=== PATIENT | male | born 1955 | race Caucasian/White ===

== ENCOUNTER 2017-09-10 15:00 | Inpatient (IN) | payer OTHER ==
[2017-09-16] MEDS ORDERED: FAMOTIDINE 20MG TABLET PO ONE (06:00)
[2017-09-16] MEDS ORDERED: ACETAMINOPHEN 1,000 MG/100 ML BTL IV ONE (06:00)
[2017-09-16] MEDS ORDERED: CELECOXIB 100 MG CAPSULE PO ONE (06:00)
[2017-09-16] MEDS ORDERED: MECLIZINE 25 MG TABLET PO ONE (06:00)
[2017-09-16] MEDS ORDERED: METOCLOPRAMIDE 10 MG TABLET PO ONE (06:00)
[2017-09-16] MEDS ORDERED: VANCOMYCIN HCL 1,000 MG in 0.9 % SODIUM CHLORIDE 250ML 250 ML IVPB ONE (06:00)
[2017-09-16 11:54] LABS: ABO GROUP A; ANTIBODY SCREEN NEGATIVE (NEGATIVE); RH TYPE POSITIVE
[2017-09-16] MEDS ORDERED: EPHEDRINE SULFATE 50 MG/ML ML IV ONE (14:00)
[2017-09-16] MEDS ORDERED: FENTANYL PF 100MCG/2ML VIAL IV ONE (14:00)
[2017-09-16] MEDS ORDERED: *PACU ONLY* KETAMINE HCL 10 MG/ML (20ML) VIAL IV ONE (14:00)
[2017-09-16] MEDS ORDERED: HYDROMORPHONE HCL 2 MG/ML VIAL IV ONE (14:00)
[2017-09-16] MEDS ORDERED: PROPOFOL 10 MG/ML VIAL IV ONE (14:00)
[2017-09-16] MEDS ORDERED: MIDAZOLAM HCL 2MG/2ML VIAL IV ONE (14:00)
[2017-09-16] MEDS ORDERED: KETOROLAC 30 MG/ML VIAL IVP ONE (14:00)
[2017-09-16] MEDS ORDERED: NALOXONE 0.4 MG/1 ML VIAL IVP PRN (15:00)
[2017-09-16] MEDS ORDERED: MAGNESIUM HYDROXIDE 30 ML UDC PO PRN (15:00)
[2017-09-16] MEDS ORDERED: CEFAZOLIN 2 Gram 2 GM/50 ML BAG IVPB SCH (15:00)
[2017-09-16] MEDS ORDERED: BISACODYL 10 MG SUPP RC PRN (15:00)
[2017-09-16] MEDS ORDERED: HYDROMORPHONE HCL 1MG/ML **SYRINGE IM PRN (15:00)
[2017-09-16] MEDS ORDERED: AL HYDROX/MAG HYDROX 30ML UD PO PRN (15:00)
[2017-09-16] MEDS ORDERED: KETOROLAC 30 MG/ML VIAL IVP PRN ×2 (15:00)
[2017-09-16] MEDS ORDERED: ACETAMINOPHEN W/ CODEINE 300MG/60MG TABLET PO PRN ×2 (15:00)
[2017-09-16] MEDS ORDERED: HYDROMORPHONE HCL 2 MG/ML VIAL IM PRN (15:00)
[2017-09-16] MEDS ORDERED: ZOLPIDEM TARTRATE 5 MG TABLET PO PRN (15:00)
[2017-09-16] MEDS ORDERED: HYDROCODONE/APAP 10/325 TABLET PO PRN (15:00)
[2017-09-16] MEDS ORDERED: ONDANSETRON HCL IV 4 MG/2 ML VIAL IVP PRN (15:00)
[2017-09-16] MEDS ORDERED: ACETAMINOPHEN 325 MG TAB PO PRN (15:00)
[2017-09-16] MEDS ORDERED: DIPHENHYDRAMINE HCL 25 MG CAPSULE PO PRN (15:00)
[2017-09-16] MEDS ORDERED: BUPIVACAINE 0.75% W/EPI MPF 30ML VIAL IVP ONE (16:23)
[2017-09-16] MEDS ORDERED: TRANEXAMIC ACID 1,000 MG/10 ML ML IV ONE (16:23)
[2017-09-16] MEDS ORDERED: POTASSIUM CHLORIDE/D5-0.9%NACL 20 MEQ/1,000 ML BAG IV SCH (16:30)
[2017-09-16] MEDS ORDERED: PNEUM 23-VAL ADULT IM ONE (16:39)
[2017-09-16] MEDS: VANCOMYCIN HCL 1,000 MG in 0.9 % SODIUM CHLORIDE 250ML 250 ML IVPB SCH (23:25)
[2017-09-16] MEDS: DOCUSATE SODIUM 100 MG CAPSULE PO SCH (23:25)
[2017-09-17] MEDS: HYDROCODONE/APAP 10/325 TABLET PO PRN ×4 (06:14→21:19)
[2017-09-17 06:43] LABS: HEMATOCRIT 28.4 % (42.0-52.0); HEMOGLOBIN 9.1 gm/dl (14.0-18.0)
[2017-09-17 06:55] LABS: BLOOD UREA NITROGEN 14 mg/dL (8-23); CREATININE 0.7 mg/dL (0.7-1.2); EST GLOMERULAR FILTRATION RATE > 60 mL/min; GLUCOSE,RANDOM 147 mg/dL (74-109)
--- NOTE | 2017-09-17 08:07 | Operative Note ---
DATE: 09/16/2017. PREOPERATIVE DIAGNOSIS: End-stage arthrosis of the right hip. POSTOPERATIVE DIAGNOSIS: End-stage arthrosis of the right hip. PROCEDURE: Cementless right total hip arthroplasty using [employer] components with a size 54, no-hole reflection cup; 32-mm diameter, 35-degree offset, highly crosslinked liner; a size 15 cementless Smolan high offset stem with a -3, 32 mm diameter Oxinium head. STAFF SURGEON: Hood Montez M.D. ANESTHESIA: Spinal. PREPARATION: ChloraPrep. INDIVIDUAL CONSIDERATIONS: None. PROCEDURE: The patient was taken to the operating room and and had successful induction of a spinal anesthetic. He was then placed on his side with the right side up, and his right leg and hip were prepped and draped in the usual fashion. The patient had a direct posterior approach to the hip. Sharp dissection was carried down through the skin and subcutaneous tissue. Small veins were coagulated with a Bovie. The tensor gluteal fascia was opened along the entire length of the incision, and deep retractors were placed. Short external rotators were identified, piriformis fossa, and removed. This exposed the posterior capsule. A posterior capsulectomy was performed, and the hip was dislocated posteriorly. He had exposed bone throughout and a shallow socket. A femoral neck cut was made freehand with an oscillating saw about a fingerbreadth above the lesser trochanter. A rim capsulectomy was then performed. A large ligamentum debrided. Starting with a 45 reamer to medialize , I reamed the introitus to a size 53 for a 54 cup. I slightly centrally reamed with a 52 reamer, and then after irrigation impacted a size 54 no-hole reflection cup in 20 degrees of forward flexion and 40 degrees of abduction using the extra-articular alignment guide and bony landmarks. There was solid cementless fixation. After irrigation the center cap screw was placed. I then again irrigated and I impacted the highly cross linked liner which was 35- degree offset with a 32-mm diameter with the offset posteriorly and inferiorly. This gave it excellent, stable acetabular construct. This was packed off. The proximal femur was delivered into the wound. A box-cutting osteotome was used to remove proximal metaphyseal bone. Mid-stem reaming was done to a size 15. I started feeling cortex to between 12 and 13. Broaching was to a 15. Anteversion was dialed into the natural angle which was about 25 degrees. After calcar reaming and because I medialized, I elected to use a high offset stem. I needed a -3 head to get absolute stability, and at that point it was not overly tight. The length appeared appropriate or maybe 1.0 mm too short which I thought would be appropriate. After irrigation, the high offset, size 15 Smolan stem was impacted into place with solid calcar contact. After thorough irrigation, I dried the Reilly taper and then impacted a -3 Oxinium head , 32 mm, and reduced the hip. I had absolute stability, full stability in external rotation and extension. I flexed it up as much as possible and even internally rotated into 90 degrees, and it was still stable. The sciatic nerve was inspected and was found to be completely intact. Hemostasis was obtained with a Bovie. The skin and subcutaneous were infiltrated with about 20 mL of 0.75% Marcaine with epinephrine. The tensor gluteal fascia was then closed with running #2 Quill, the subcutaneous was closed in layers of running 0 Quill. Prior to finishing close the fascia, I did inject the deep fascial area with 30 mL of saline mixed with 1.0 gm of tranexamic acid. He also received 1.0 gm of tranexamic acid IV. The skin was then closed with darrell and a sterile, bulky compressive Aquacel type dressing was applied. The patient tolerated the procedure well. Needle and sponge counts were correct. Estimated blood loss was 500 mL. We will check a hemoglobin in the morning. There were absolutely no complications. GABRIELLE
--- NOTE | 2017-09-17 10:49 | Rehab Evaluation ---
Patient Information - Patient Information Diagnosis: DJD Right Hip Ordered Treatment: PT Evaluate and Treat Status: Initial Evaluation Surgery: Yes (R BULL) Date of Surgery: 09/16/17 History: Detail (Pt. reports history of osteoarthritic changes pertaining to the right hip. Pt. denies related surgeries prior to BULL.) Past Med/Giovanni Hx Detail: Detail (See additional intake forms.) Past Medical/Surgical Hx: PAST MEDICAL/SURGICAL HISTORY Past Surgical History c scope polyps tonsils PMH - Respiratory Hx Respiratory Disorders No PMH - Cardiovascular Exercise Tolerance Good PMH - Neuro Hx Neurological Disorders No PMH - GI Hx Gastrointestinal Disorders Yes PMH - Hx Genitourinary Disorders No PMH - Endocrine Hx Endocrine Disorders No PMH - Musculoskeletal Hx Musculoskeletal Disorders Yes Hx Arthritis Yes PMH - Psych Hx Psychiatric Problems Yes Hx Anxiety Yes: related to surgery and other things PMH - Hematology/Oncology Hx Hematology/Oncology No Disorders Premorbid Status: Detail (Pt. reports slowly progressive worsening of sx.) Social History: Detail (Pt. lives alone in a single story home with 2 steps leading into the home and no hand rail. Pt. reports he has a daughter who lives nearby and is able to provide support. Pt. does report his laundry is located in the basement. Pt. has a standard tub with shower chair, he has a commode in the bathroom. Pt. does not have a trapeeze or other assistive tools for bed mobility. He is a 1 pack per day smoker. Pt. worked for [employer].) Precautions: [place], Fall - Time With Patient Total Time Spent With Patient (Min): 40 Treatment Procedures: Detail (Physical Therapy Evaluation Completed. Pt. was left supine with call light available, B IPC, cryo Right hip.) Subjective Information - Subjective Information Per Patient (Pt. reported 6-7/10 right hip pain at start of tx, which decreased to 1-2/10 at end of tx. Pt. was found seated upright in a chair with visible signs of fatigue. Pt. was oriented to his location and purpose for being at [facility] , however, he required verbal cues to stay awake during verbal instruction of hip precautions.) Objective Data - Pain Pain Present: Yes Pain Intensity: 6 Pain Scale Used: Numeric (1 - 10) - Mental Status Patient Orientation: Oriented x3 - Visual Perception Appears within normal limits for therapeutic activities - ROM Not within normal limits (Right hip not tested for AROM due to pain. Right knee flexion and extension within functional limits actively. Right ankle dorsiflexion and platarflexion within funtional limits actively. LLE within functional limits actively all planes. BUE WFL all planes.) - Strength/Tone Not within normal limits (R hip flexion 3+/5 with increased pain, 4+/5 L hip flexion with increased pain at the right hip. 4/5 right knee flexion and extension. 5/5 L LE for gross break testing. Right hip abduction 3+/5 and patient required mod assist with SLR and abduction of right hip with bed mobility and transfer.) - Coordination Appears within normal limits for therapeutic activities - Bed Mobility Needs Assist (Pt. required verbal and tactile cueing to hook his LLE and extend his hip, as well as push UE into bed for bed mobility to position at head of bed. He required mod assist x1 when lifting his RLE into bed and to position his RLE appropriately once supine.) - Transfers Needs Assist (Pt. required min assist x2 with sit to stand transfer, he was I with stand to sit transfer. Pt. required tactile cueing to facilitate hip extension to maintain standing balance and upright positioning following sit to stand transfer.) - Balance Balance Sitting: Fair (Pt. exhibited good midline positioning with seated balance, but did require tactile cues to avoid breaking hip precautions past 90 degrees of flexion once seated at bed.) Balance Standing: Fair (Pt. unable to stand without walker secondary to deacreased weight bore onto RLE.) - Sensation Intact (Pt. able to feel sensation to light touch, he exhibited excellent proprioceptive and kinesthetic awareness regrading the RLE.) - Gait Detail (Pt. ambulated for 4 steps forward and backward with standard walker and exhibited lack of heel strike, RLE; pt. bore ~25 BW onto RLE and relied heavily on his contralateral LE to perform transfers and advance his involved LE with walker.) - ADL's/IADL's Detail (Pt. was not assessed for ADLs regarding dressing and bathroom use.) - Special Tests No Therapy Assessment - Therapy Assessment Detail (Pt. exhibits poor safety awareness with transfers, decreased strength regarding the RLE, poor standing balance, and he is not independent with bed mobility and transfer.) Patient Education - Patient Education Teaching Topic: Disease Process, Equipment Use, Precautions Response: Return Demonstration, Verbalize Understanding Teaching Method: Discussion, Demonstration Teaching Recipient: Patient Barriers To Learning: None Problem List - Problem List Physical Therapy Problem List: Detail (1) LE weakness 2) Antalgic gait 3) Balance impairment 4) Dependent with bed mobility and transfer.) Goals - Goals Physical Therapy Goals: 1) Pt. will ascend and descend 2 steps I with or without AD and will not break hip precations. 2) Pt. will be independent with bed mobility and transfer. 3) Pt. will exhibit good seated and standing balance for safe ADLs. 4) Pt. will verbalize understanding of hip precautions. 5) Pt. will demonstrate good understanding of his HEP. Prognosis - Prognosis Good Plan - Plan Physical Therapy Plan: Pt. will be seen 1-2x per day for inpatient PT until goals met.
[2017-09-17] MEDS: RIVAROXABAN 10 MG TABLET PO SCH (11:11)
[2017-09-17] MEDS: DOCUSATE SODIUM 100 MG CAPSULE PO SCH ×2 (11:11→21:18)
[2017-09-17] MEDS: FERROUS SULFATE 325 MG TAB PO SCH (11:11)
[2017-09-17] MEDS: VANCOMYCIN HCL 1,000 MG in 0.9 % SODIUM CHLORIDE 250ML 250 ML IVPB SCH (11:13)
--- NOTE | 2017-09-17 14:30 | Rehab Evaluation ---
Patient Information - Patient Information Diagnosis: DJD Right Hip Ordered Treatment: OT Evaluate and Treat Status: Initial Evaluation Surgery: Yes (R BULL) Date of Surgery: 09/16/17 History: Detail (Pt. reports history of osteoarthritic changes pertaining to the right hip. Pt. denies related surgeries prior to BULL.) Past Med/Giovanni Hx Detail: Detail (See additional intake forms.) Past Medical/Surgical Hx: PAST MEDICAL/SURGICAL HISTORY Past Surgical History c scope polyps tonsils PMH - Respiratory Hx Respiratory Disorders No PMH - Cardiovascular Exercise Tolerance Good PMH - Neuro Hx Neurological Disorders No PMH - GI Hx Gastrointestinal Disorders Yes PMH - Hx Genitourinary Disorders No PMH - Endocrine Hx Endocrine Disorders No PMH - Musculoskeletal Hx Musculoskeletal Disorders Yes Hx Arthritis Yes PMH - Psych Hx Psychiatric Problems Yes Hx Anxiety Yes: related to surgery and other things PMH - Hematology/Oncology Hx Hematology/Oncology No Disorders Premorbid Status: Detail (Pt. reports slowly progressive worsening of sx.) Social History: Detail (Pt. lives alone in a single story home with 2 steps leading into the home and no hand rail. Pt. reports he has a daughter who lives nearby and is able to provide support. Pt. does report his laundry is located in the basement. However, patient completed several loads of laundry prior to sx and states he will not need to do laundry for a long time. Pt. has a standard tub/shower combo with transfer bench and fixed shower head. He has a commode in the bathroom. Pt. does not have a trapeeze or other assistive tools for bed mobility. Pt has carding utility tender already. He is a 1 pack per day smoker. Pt. worked for [employer].) Precautions: [place], Fall - Time With Patient Total Time Spent With Patient (Min): 30 Treatment Procedures: Detail (OT Eval LOW) Subjective Information - Subjective Information Per Patient (Pt reports being in increased pain and believes he is overdue for pain medication. Pt states his IV was turned off but still needed to be disconnected from him. He stated that pain in R hip increases when lying in bed and has primarily been sitting in bedside chair. Currently no raisers on bedside chair and pt was educated to not lean forward secondary to hip precautions.) Objective Data - Pain Pain Present: Yes (5/10 at beginning of evaluation; 4/10 post evaluation) Pain Intensity: 5 Pain Scale Used: Numeric (1 - 10) - Mental Status Patient Orientation: Oriented x3 - Visual Perception Appears within normal limits for therapeutic activities (pt wears glasses) - ROM Within normal limits (BUE's) - Strength/Tone Within normal limits (MMT = grossly 4+/5 BUE's) - Coordination Appears within normal limits for therapeutic activities - Transfers Independent (V/c's for not breaking hip precautions and to kick RLE out when getting ready to push up into standing. CGA for sit<>stand t/f. Pt needed increased time to transition sit<>stand. Pt reports pain decreases when standing and stood w/ CGA for 5 min.) - ADL's/IADL's Detail (Pt's daughter and grand daughter present during ADL instruction. Pt was educated and demonstrated understanding of LB drsg techniques using hip kit to adhere to hip precautions. Pt needed min v/c's to not flex trunk past 90 deg when moving into standing. Independent with carding utility tender use and LB drsg. Pt states he will sponge bath at home for awhile. Pt asked his daughter to purchase LH sponge for home use. Pt was shown sock aid use but states he will not be wearing socks at home. Pt's pain, decreased ability and hesitancy to bear weight on RLE will impact safety at home with dressing.) Therapy Assessment - Therapy Assessment Detail (Pt shows pain, and hesitancy towards bearing weight on RLE which will need impact safety w/ drsg at home alone. Pt did demonstrate independence w/ LB drsg using carding utility tender while adhering to hip precautions.) Patient Education - Patient Education Teaching Topic: Equipment Use Response: Return Demonstration Teaching Method: Demonstration Teaching Recipient: Patient, Family Barriers To Learning: None Problem List - Problem List Physical Therapy Problem List: Detail (1) LE weakness 2) Antalgic gait 3) Balance impairment 4) Dependent with bed mobility and transfer.) Goals - Goals Physical Therapy Goals: 1) Pt. will ascend and descend 2 steps I with or without AD and will not break hip precations. 2) Pt. will be independent with bed mobility and transfer. 3) Pt. will exhibit good seated and standing balance for safe ADLs. 4) Pt. will verbalize understanding of hip precautions. 5) Pt. will demonstrate good understanding of his HEP. Prognosis - Prognosis Good Plan - Plan Physical Therapy Plan: Pt. will be seen 1-2x per day for inpatient PT until goals met. Occupational Therapy Plan: Pt demonstrated safety w/ LB felice. Pt will call OT with any questions should they come up once d/c'd home. Pt to be d/c'd from OT at this time.
[2017-09-17] MEDS ORDERED: HYDROCODONE/APAP 5/325MG TABLET PO PRN ×2 (17:20)
--- NOTE | 2017-09-17 18:16 | Physical Therapy Tx Note ---
Physical Therapy Tx Note - Treatment Note Tolerated: Fair (Pt. began tx supine with head of bed elevated and required verbal cues to stay awake. Pt. c/o hip pain and drowzniess after medication.) Total Time Spent With Patient: 30 Physical Therapy Tx Note: Detail (Pt. required min-mod assist with bed mobility to abduct his right hip from seated to supine. Pt. required verbal cueing to avoid breaking his hip precautions with ambulation. Pt. ambulated with CGA for 22 feet with front wheeled walker. Pt. c/o drowziness and hip pain and requested to be back in bed. Pt. was left supine with call light available, B IPC, and cryo on right hip. Pt. denied ambulation over stairs.) Physical Therapy Problem List: Detail (1) LE weakness 2) Antalgic gait 3) Balance impairment 4) Dependent with bed mobility and transfer.) Physical Therapy Goals: 1) Pt. will ascend and descend 2 steps I with or without AD and will not break hip precations. 2) Pt. will be independent with bed mobility and transfer. 3) Pt. will exhibit good seated and standing balance for safe ADLs. 4) Pt. will verbalize understanding of hip precautions. 5) Pt. will demonstrate good understanding of his HEP. Prognosis: Moderate Physical Therapy Plan: Pt. will be seen 1-2x per day for inpatient PT until goals met.
[2017-09-18 06:54] LABS: HEMATOCRIT 25.2 % (42.0-52.0); HEMOGLOBIN 8.2 gm/dl (14.0-18.0)
[2017-09-18 07:09] LABS: BLOOD UREA NITROGEN 11 mg/dL (8-23); CREATININE 0.5 mg/dL (0.7-1.2); EST GLOMERULAR FILTRATION RATE > 60 mL/min; GLUCOSE,RANDOM 125 mg/dL (74-109)
[2017-09-18] MEDS ORDERED: TRAMADOL HCL 50 MG TABLET PO PRN (08:39)
[2017-09-18] MEDS: FERROUS SULFATE 325 MG TAB PO SCH (09:44)
[2017-09-18] MEDS: DOCUSATE SODIUM 100 MG CAPSULE PO SCH (09:44)
[2017-09-18] MEDS: RIVAROXABAN 10 MG TABLET PO SCH (09:45)
--- NOTE | 2017-09-18 11:09 | Physical Therapy Tx Note ---
Physical Therapy Tx Note - Treatment Note Tolerated: Good Total Time Spent With Patient: 45 Physical Therapy Tx Note: Detail (Arrived to find Pt sitting up in chair with a few blankets folded underneath the Pt. Pt was groggy. Nursing advised changed medication to ultram because of decreased LOC with other medication. Gait belt was applied and Pt transferred to walker with minimal assist. Pt ambulated with walker with contact gaurd assist 58 feet with one break on the way. Pt was educated on stairs and ambulated up and down 3 steps with contact gaurd. Pt was wheeled back to room in wheelchair and self transferred back to chair. Pt was fatigued after tx but stated "I feel like I accomplished something". Pt was given a wedge cushion to sit on in the chair. Pt was left with water, juice , cell phone and call light on the table or within reach. Pt had ice applied to (R) hip.) Physical Therapy Problem List: Detail (1) LE weakness 2) Antalgic gait 3) Balance impairment 4) Dependent with bed mobility and transfer.) Physical Therapy Goals: 1) Pt. will ascend and descend 2 steps I with or without AD and will not break hip precations. 2) Pt. will be independent with bed mobility and transfer. 3) Pt. will exhibit good seated and standing balance for safe ADLs. 4) Pt. will verbalize understanding of hip precautions. 5) Pt. will demonstrate good understanding of his HEP. Prognosis: Good Physical Therapy Plan: Pt. will be seen 1-2x per day for inpatient PT until goals met.
--- NOTE | 2017-09-18 16:56 | Discharge Summary ---
DATE OF ADMISSION: 09/16/17 DATE OF DISCHARGE: 09/18/17 DATE OF SURGERY: 09/16/17 HISTORY: Mr. Sams is a delightful 61-year-old male who presents with end- stage arthrosis of his right hip. He was admitted after right total hip arthroplasty. Postoperatively, he did well. His only problem was he was very sensitive to narcotics so he was quite somnolent. We finally settled on just giving him one regular Ultram with Tylenol as needed for pain. His discharge hemoglobin was 8.2 and not required transfusion. DISCHARGE INSTRUCTIONS: The plan is to discharge him home in the care of his family. Home PT and Visiting Nurse have been arranged. Sutures will be removed in two weeks. He will follow-up in the office in four weeks. FINAL DIAGNOSIS/PRIMARY DIAGNOSIS: END-STAGE ARTHROSIS OF THE RIGHT HIP. OPERATIONS AND PROCEDURES: CEMENTLESS RIGHT TOTAL HIP ARTHROPLASTY. DISCHARGE CONDITION: GOOD. JOB NUMBER: [id number]
== END 2017-09-18 16:32 | disposition home health service (06) | DRG 470 ==
LOC: UNDOADMIN 09-16 10:37 → MEDSURG 09-16 10:37
PROVIDERS: ADMIT Orthopaedic Surgery; ATTEND Orthopaedic Surgery
PROC: 0SR9069 Replacement of Right Hip Joint with Oxidized Zirconium on Polyethylene Synthetic Substitute, Cemented, Open Approach (ICD-10-PCS; principal; 2017-09-16 13:00)
DX: M16.11 Unilateral primary osteoarthritis, right hip (principal)
CPT/HCPCS: 80048; 85014; 85018; 86850; 86900; 86901; 93005; 97110; 97116; 97165; J1885; J2405; J3480; J3490; J7050